=== PATIENT | male | born 1955 | race Caucasian/White ===

== ENCOUNTER 2019-12-19 14:08 | Day surgery (SDC) | payer MEDICARE, BC ==
[2019-12-19] VITALS (9 sets, daily range): BP systolic 131–151; BP diastolic 69–78
[~2019-12-19] VITALS: Ht 177.8 cm; Wt 125.1 kg
[~2019-12-19 14:08] MED LIST: AMLO10TA PO; CALC250T2 PO; FERR236T3 PO; METF500T PO; MULT-1085 PO; OLME20TA14 PO; OMEG1CAP2 PO; OMEP-50 PO; ZOLP10TA PO; ceFAZolin 1GM/D5W- ADD-VANTAGE 50 ML IV ONE; ceFAZolin 2gm in dextrose, iso 50 ML IV ONE; famotidine 20mg tablet PO ONE; ringers solution, lacted 1,000 ML IV SCH
[2019-12-19] MEDS ORDERED: ceFAZolin 1000mg inj ONE (15:05)
[2019-12-19 15:36] LABS: BASOPHILS # (AUTO) 0.1 X10'3 (0-0.2); BASOPHILS % (AUTO) 0.8 % (0-1); EOSINOPHILS # (AUTO) 0.2 X10'3 (0-0.9); EOSINOPHILS % (AUTO) 2.2 % (0-6); LYMPHOCYTES # (AUTO) 2.8 X10'3 (1.1-4.8); LYMPHOCYTES % (AUTO) 40.2 % (21-51); MEAN CORPUSCULAR HEMOGLOBIN 29.6 PG (27.0-31.0); MEAN CORPUSCULAR HGB CONC 33.2 g/dL (33.0-36.5); MEAN CORPUSCULAR VOLUME 88.9 FL (78-98); MEAN PLATELET VOLUME 8.7 FL (7.4-10.4); MONOCYTES # (AUTO) 0.7 X10'3 (0-0.9); MONOCYTES % (AUTO) 9.6 % (2-12); NEUTROPHILS # (AUTO) 3.2 X10'3 (1.8-7.7); NEUTROPHILS % (AUTO) 47.2 % (42-75); PRE OP HEMOGLOBIN 14.3 g/dL (14.0-17.9); PRE OP PLATELET COUNT 300 X10'3 (140-440); RED BLOOD COUNT 4.84 X10'6 (4.70-6.10); RED CELL DISTRIBUTION WIDTH 17.6 % (11.5-14.5)
[2019-12-19 15:50] LABS: ALBUMIN 3.7 G/DL (3.4-5.0); ALBUMIN/GLOBULIN RATIO 0.8 (1.1-1.5); ALKALINE PHOSPHATASE 53 IU/L (46-116); BLOOD UREA NITROGEN 16 MG/DL (7-18); BUN/CREATININE RATIO 13.4 (5.4-32.0); CALCIUM 9.9 MG/DL (8.5-10.1); CHLORIDE 105 MMOL/L (99-107); CREATININE 1.19 MG/DL (0.60-1.10); PRE OP ALT 35 U/L (30-65); PRE OP ANION GAP 8 (8-16); PRE OP AST 21 U/L (10-37); PRE OP BILIRUB, TOTAL 0.5 MG/DL (0.0-1.0); PRE OP GLUCOSE 102 MG/DL (70-104); PRE OP POTASSIUM 3.6 MMOL/L (3.4-5.1); PRE OP SODIUM 142 MMOL/L (135-145); TOTAL CARBON DIOXIDE 29.5 MMOL/L (24-32); TOTAL PROTEIN 8.2 G/DL (6.4-8.2); eGFR 62 ML/MIN
[2019-12-19] MEDS ORDERED: dexamethasone sod phosphate 10mg/ml inj ONE (15:55)
[2019-12-19] MEDS ORDERED: sevoflurane 250ml liquid IH ONE (15:55)
[2019-12-19] MEDS ORDERED: midazolam 2 mg/2 ml injection ONE (16:02)
[2019-12-19] MEDS ORDERED: fentaNYL/PF 50MCG/1 ML 2ML syringe ONE (16:02)
[2019-12-19] MEDS ORDERED: BUPIVAcaine/PF 2.5 mg/ml (0.25%) 30ml vial ONE (16:23)
[2019-12-19] MEDS ORDERED: propofol inj 20 ML IV ONE (16:53)
[2019-12-19] MEDS ORDERED: LIDOcaine 2% (20mg/ml) 5ml vial ONE (16:53)
[2019-12-19] MEDS ORDERED: ondansetron/PF 4mg/2ml inj ONE (16:53)
[2019-12-19] MEDS ORDERED: glycopyrrolate 0.2mg/ml inj ONE (16:53)
--- NOTE | 2019-12-19 16:55 | NUR ---
Received from OR via BED , accompanied by Anesthesiologist DR SHANE and report given by Anesthesiolgist. PATIENT WAKING UP, DENIES PAIN, V/S WNL, NEUROVASCULAR CHECKS INTACT, 20G PIV LUE, SCD ON, [place] AT 125 CONTINOUS SUCTION TO ABDOMEN CDI WITH NO LEAKS DETECTED.
[2019-12-19] MEDS ORDERED: ringers solution, lacted 1,000 ML IV SCH (17:02)
[2019-12-19] MEDS ORDERED: ondansetron/PF 4mg/2ml inj IV PRN (17:05)
[2019-12-19] MEDS ORDERED: HYDROmorphone inj. 0.5 MG/0.5 ML DISP.SYRIN IV PRN ×2 (17:05)
[2019-12-19] MEDS ORDERED: meperidine/PF 25mg/ml syringe IV PRN ×2 (17:05)
--- NOTE | 2019-12-19 17:55 | NUR ---
PATIENT A&OX4, DENIES PAIN, V/S WNL, NEUROVASCULAR CHECKS INTACT, 20G PIV LUE D/C, SCD OFF, [place] AT 125 CONTINOUS SUCTION TO ABDOMEN CDI WITH NO LEAKS DETECTED. MEDS FAXED TO PATIENT PHARMACY. PATIENT GIVEN INFO TO CALL DR MAURER IN AM FOR HOME HEALTH INFORMATION FOR DETAILS AND THAT THERE IS ONLY ONE SPONGE IN [place] DRESSING. I WAS UNABLE TO FIND OUT WHICH HOME HEALTH AGENCY WILL BE HELPING BECAUSE DR PURDY OFFICE WAS CLOSED. I HAVE GIVEN PATIENT INSTRUCTION ON [place] CARE AND USE AND TO WAIT FOR HH RN FOR DRESSING CHANGES. ALL [place] SUPPLIES WERE GIVEN TO PATIENT WELL. I HAVE REVIEWED D/C INSTRUCTIONS WITH PATIENT AND FAMILY AND THEY HAVE VERBALIZED UNDERSTANDING. PATIENT D/C HOME WITH ALL BELONGINGS AND FAMILY GAVE TRANSPORT HOME.
== END 2019-12-19 17:55 | disposition home or self-care (01) ==
LOC: PAS 14:08
PROVIDERS: ATTEND Surgery
DX: T81.49XA Infection following a procedure, other surgical site, initial encounter (principal); G47.33 Obstructive sleep apnea (adult) (pediatric); I10 Essential (primary) hypertension; E11.9 Type 2 diabetes mellitus without complications; K21.9 Gastro-esophageal reflux disease without esophagitis; Z98.84 Bariatric surgery status; Z90.49 Acquired absence of other specified parts of digestive tract; Z98.890 Other specified postprocedural states; Z88.5 Allergy status to narcotic agent; Z79.899 Other long term (current) drug therapy; Z86.14 Personal history of Methicillin resistant Staphylococcus aureus infection; Y83.8 Other surgical procedures as the cause of abnormal reaction of the patient, or of later complication, without mention of misadventure at the time of the procedure; Y92.89 Other specified places as the place of occurrence of the external cause
CPT/HCPCS: 11005; 11008; 36415; 80053; 82948; 85025; 93005; J0690; J1100; J2001; J2250; J2405; J2704; J3010; J3490; J7120; A4618; A6550; A7000